=== PATIENT | male | born 1990 | race Caucasian/White ===

== ENCOUNTER 2020-04-06 10:54 | Emergency (ER) | payer MEDICAID, SELFPAY ==
[2020-04-06 10:57] VITALS: BP 151/87; PULSE 112; RESP 16; TEMP 37.4; O2SAT 98
--- NOTE | 2020-04-06 12:07 | ED.GENADULT ---
HPI - General Adult General Chief complaint: Skin/Abscess/Foreign Body Stated complaint: fb throat Time Seen by Provider: 04/06/20 11:42 Source: patient Mode of arrival: ambulatory Limitations: no limitations History of Present Illness HPI narrative: Patient is a 29-year-old male who presents with throat irritation notes that he swallowed a candy bar 2 days ago and has since had discomfort in the throat notes that he smoked marijuana today and was able to cough up what he thought might be some phlegm patient notes mild irritation denies other complaints PMFSH Social History Social History (Updated 04/06/20 @ 12:36 by Brian Monroy PA-C) Smoking status: Current every day smoker Substance use type: marijuana Exam Narrative: Exam Narrative: GENERAL: Well-appearing, well-nourished, and in no acute distress. HEAD: Normocephalic, atraumatic. EYES: PERRLA and EOMI. ENT: Nares clear, no rhinorrhea or epistaxis. Mucous membranes moist. CHEST: Clear to auscultation. No respiratory distress. No wheezes rales or rhonchi HEART: Regular rate and rhythm. No murmur heard. SKIN: Warm, dry, no rash. NEURO: No focal deficits. Alert and oriented x3. PSYCH: Normal mood and affect. Course Course Emergency Course: Patient refused any imaging wanted to leave it is felt that this is safe patient is swallowing liquids without difficulty his discomfort is in the upper throat he has no difficulty speaking will be discharged home Vital Signs Vital signs: Vital Signs Temperature 99.3 F 04/06/20 10:57 Pulse Rate 112 H 04/06/20 10:57 Respiratory Rate 16 04/06/20 10:57 Blood Pressure 151/87 H 04/06/20 10:57 Pulse Oximetry 98 04/06/20 10:57 Temperature 99.3 F 04/06/20 10:57 Pulse Rate 112 H 04/06/20 10:57 Respiratory Rate 16 04/06/20 10:57 Blood Pressure 151/87 H 04/06/20 10:57 Pulse Oximetry 98 04/06/20 10:57 Medical Decision Making MDM Narrative Medical decision making narrative: Patient opted to leave with no imaging Vital Signs Vital Signs: Vital Signs Temperature 99.3 F 04/06/20 10:57 Pulse Rate 112 H 04/06/20 10:57 Respiratory Rate 16 04/06/20 10:57 Blood Pressure 151/87 H 04/06/20 10:57 Pulse Oximetry 98 04/06/20 10:57 Temperature 99.3 F 04/06/20 10:57 Pulse Rate 112 H 04/06/20 10:57 Respiratory Rate 16 04/06/20 10:57 Blood Pressure 151/87 H 04/06/20 10:57 Pulse Oximetry 98 04/06/20 10:57 Discharge Plan Discharge Clinical Impression: Pain in throat Patient Disposition: Home, Self-Care Condition: Stable Instructions: Antibiotic Form, Foreign Body in Pharynx (ED) Additional Instructions: Follow-up with gastroenterology in the next 5 days. Go to ER for shortness of breath, difficulty breathing, chest pain, fever/chills, weakness, nauseau/vomitting, etc. or any other concerns. Take any prescribed medications as directed. If you do not have a drug allergy to tylenol or motrin and can tolerate it then take tylenol or motrin as needed for discomfort/pain. Follow-up/Referrals: Bradley Carlson MD [Primary Care Provider] - Gary White MD [Physician] -
== END 2020-04-06 12:39 | disposition home or self-care (01) ==
PROVIDERS: Emergency Provider Emergency Medicine; PCP Internal Medicine
DX: R07.0 Pain in throat (principal); F17.200 Nicotine dependence, unspecified, uncomplicated
CPT/HCPCS: 99281

== ENCOUNTER 2021-11-16 19:54 | Emergency (ER) | payer OTHER, SELFPAY ==
[2021-11-16 20:44] VITALS: BP 127/72; PULSE 80; RESP 19; TEMP 36.7; O2SAT 97
--- NOTE | 2021-11-16 21:32 | ECG_ITS ---
Measurements Intervals [place] Rate: 77 P: 80 CT: 147 QRS: 89 QRSD: 105 T: 73 QT: 348 QTc: 396 Interpretive Statements SINUS RHYTHM WITH MARKED SINUS ARRHYTHMIA BASELINE ARTIFACT- I, II, III, AVR, AVL, AVF, V1 NORMAL ECG Electronically Signed On 11-17-2021 8:02:20 CDT by Efren Matthews D.O.
[2021-11-16 21:53] LABS: Basophils Absolute Auto 0.14 K/mm3 (0.00-0.10); Eosinophils Absolute Auto 0.11 K/mm3 (0.02-0.50); Eosinophils Percent Auto 0.8 % (1.0-6.0); Hemoglobin 15.6 g/dL (14.0-18.0); Immature Granulocyte Absolute 0.05 K/mm3 (0.00-0.00); Immature Granulocyte Percent A 0.4 % (0.0-0.0); Lymphocytes Absolute Auto 1.95 K/mm3 (1.10-4.50); Lymphocytes Percent Auto 13.8 % (18.0-42.0); Mean Corpuscular HGB Conc 34.7 g/dL (32.0-36.0); Mean Corpuscular Hemoglobin 32.3 pg (27.0-31.0); Mean Corpuscular Volume 93.2 fL (78.0-102.0); Mean Platelet Volume 11.1 fl (8.7-11.0); Monocytes Absolute Auto 0.74 K/mm3 (0.10-0.90); Monocytes Percent Auto 5.2 % (2.0-11.0); Neutrophils Absolute Auto 11.2 K/mm3 (1.7-7.2); Neutrophils Percent Auto 78.8 % (50.0-70.0); Platelet Count Result 200 K/mm3 (150-420); Red Blood Count 4.83 M/mm3 (4.70-6.10); Red Cell Distribution Width 12.1 % (11.6-14.4); White Blood Count 14.2 K/mm3 (4.8-10.8)
--- NOTE | 2021-11-16 22:04 | PC.NURSE ---
Bartolo from [facility] assessing pt at this time.
[2021-11-16 22:20] LABS: Add Urine Microscopic? NO; Appearance Urine Clear (Clear); Bilirubin Urine Negative (Negative); Blood Urine Negative (Negative); Color Urine Yellow (Yellow); Glucose Urine UA Negative (Negative); Ketones Urine Negative (Negative); Leukocyte Esterase Ur Negative LEU/UL (Negative); Nitrate Urine Negative (Negative); Protein Urine Negative (Negative); Specific Grav Ur 1.025 (1.010-1.020); Urobilinogen Urine 0.2 mg/dL (0.2-1.0)
[2021-11-16 22:26] LABS: Amphetamine Screen Urine Negative (Negative); Barbiturate Screen Urine Negative (Negative); Benzodiazepines Screen Urine Negative (Negative); Cannabinoid Screen Urine Negative (Negative); Cocaine Screen Urine Negative (Negative); Methadone Screen Urine Negative (Negative); Opiate Screen Urine Negative (Negative); Phencyclidine Screen Urine Negative (Negative)
[2021-11-16 22:28] LABS: Acetaminophen < 2 ug/mL (10-30); Alanine Aminotransferase 30 U/L (16-63); Albumin Level 4.2 g/dL (3.4-5.0); Alkaline Phosphatase 74 U/L (46-116); Anion Gap 7 mmol/L (8-16); Aspartate Amino Transferase 20 U/L (15-37); Bilirubin,Total 0.6 mg/dL (0.00-1.00); Blood Urea Nitrogen 12 mg/dL (7-18); Calcium 9.1 mg/dL (8.5-10.1); Carbon Dioxide 30 mmol/L (21-32); Chloride 105 mmol/L (98-108); Estimated CRCL calculation 83 ml/min; Estimated Glomerular Filt Rate > 60; Ethanol < 3 mg/dL (0-6); Glucose 96 mg/dL (70-99); Osmolality Calculated 293 mOsm/kg (285-295); Potassium 3.9 mmol/L (3.5-5.1); Salicylate 1.1 mg/dL (2.8-20.0); Sodium 142 mmol/L (136-145); Thyroid Stimulating Hormone 1.16 uIU/mL (0.36-3.74); Total Protein 7.3 g/dL (6.4-8.2)
--- NOTE | 2021-11-16 22:58 | ED.PSYCH ---
HPI - Psych General Chief Complaint: Psychiatric Symptoms Stated Complaint: psych eval Time Seen by Provider: 11/16/21 19:58 Source: patient, family and RN notes reviewed Mode of arrival: ambulatory Limitations: no limitations History of Present Illness complaint: suicidal ideation and feels depressed Onset (ago): day(s) (2) Duration: constant History of same: Yes Relieving factors: none Exacerbating factors: other (uncertain) Associated psychiatric symptoms: depression and suicidal ideation Associated symptoms: denies other symptoms Treatments prior to arrival: none If self harm: admits thoughts of self harm Related Data Home Medications Medication Instructions Recorded Confirmed No Home Medications 11/16/21 11/16/21 Allergies Allergy/AdvReac Type Severity Reaction Status Date / Time No Known Allergies Allergy Verified 11/18/21 14:36 Review of Systems Review of Systems: All systems reviewed & are unremarkable except as noted in HPI and below Constitutional: Constitutional: Reports no additional constitutional complaints Eyes: Eyes: Reports no additional eye complaints ENT: Reports system reviewed and no additional complaints, except as documented Cardiovascular: Cardiovascular: Reports no additional cardiovascular complaints Respiratory: Respiratory: Reports no additional respiratory complaints Gastrointestinal: Gastrointestinal: Reports no additional gastrointestinal complaints Musculoskeletal: Musculoskeletal: Reports no additional musculoskeletal complaints Integumentary/Breasts: Skin/Breast: Reports system reviewed and no additional complaints, except as docu Neurologic: Reports system reviewed and no additional complaints, except as documented Psychiatric: Psychiatric: Reports no additional psychiatric complaints, Reports depression and Reports suicidal ideation Endocrine: Endocrine: Reports no additional endocrine complaints Hematologic/Lymphatic: Hematologic/Lymphatic: Reports no additional hematologic/lymphatic complaints Allergic/Immunologic: Allergic/Immunologic: Reports no additional allergic/immunologic complaints PMFSH Past Medical History Medical History Psychiatric disorder Social History Social History Smoking status: Current every day smoker Substance use type: marijuana Exam Const: General: healthy appearing and no acute distress Nutritional Appearance: well nourished Orientation/consciousness: patient oriented x3 Limitations: no limitations HENMT: Head: normal to inspection Ears: external ears normal, TM's normal bilaterally and EAC's normal General nose exam: Normal external nose present and Normal nares present Face and sinus: normal facial exam and sinuses nontender Mouth: Yes Normal oral and palatal mucosa present and Yes moist mucous membranes Teeth and gingiva: dentition normal Throat: posterior oropharynx normal Eyes: Conjunctivae: conjunctivae normal Pupils: Equal, round and reactive pupils present EOM: EOMs intact bilaterally Neck: Neck: normal visual inspection, no lymphadenopathy and no meningeal signs Chest: Chest palpation & inspection: normal inspection of the chest Resp: Effort & Inspection: normal respiratory effort Auscultation: clear to auscultation bilaterally Cardio: Rate: regular rate Rhythm: regular rhythm GI: GI Palp: Yes Soft to palpation and No Tenderness to palpation present (GI) Auscultation: normal bowel sounds : General: Yes bladder normal to palpation and Yes no CVA tenderness Back/Spine/Pelvis: Back: no CVA tenderness Skin: General skin exam: normal color Rashes: no rashes Wounds: no wounds Neuro: General: patient oriented x3, moves all extremities, no meningeal signs, no focal motor deficits and CN's II-XI intact bilaterally Cranial nerves: Yes Equal, round and reactive pupils present and Yes Nysta
--- NOTE | 2021-11-16 23:12 | PC.NURSE ---
[facility] report placed in pt chart, pt be deflected home.
[2021-11-16 23:27] VITALS: BP 124/88; PULSE 66; RESP 16; TEMP 36.6; O2SAT 66
== END 2021-11-16 23:28 | disposition home or self-care (01) ==
PROVIDERS: Emergency Provider Emergency Medicine; PCP Internal Medicine
DX: F32.A Depression, unspecified (principal); R45.851 Suicidal ideations
CPT/HCPCS: 36415; 80053; 80307; 81003; 84443; 85025; 93005; 99285

== ENCOUNTER 2023-06-09 07:14 | Emergency (ER) | payer BC, OTHER, SELFPAY ==
[2023-06-09] VITALS (7 sets, daily range): BP systolic 118–154; BP diastolic 81–86; PULSE 60–75; RESP 12–19; TEMP 36.1–36.2; O2SAT 97–100
--- NOTE | ~2023-06-09 | XR_ITS ---
Portable chest x-ray Comparison: 10/21/2006 Clinical History: Chest pain, cough Findings: Lungs are clear, without focal consolidation or pleural effusion. Cardiomediastinal silho uette is stable. Bones and soft tissues are unremarkable. Impression: Normal chest. Reviewed, dictated and finalized at location . WRAPPER Impression: Normal chest.
--- NOTE | 2023-06-09 07:16 | ECG_ITS ---
Measurements Intervals [place] Rate: 65 P: 80 NH: 118 QRS: 89 QRSD: 112 T: 86 QT: 358 QTc: 374 Interpretive Statements SINUS RHYTHM WITH SINUS ARRHYTHMIA WITH SHORT NH INTERVAL COMPARED TO ECG 11/16/2021 21:45:17 NO SIGNIFICANT CHANGES Electronically Signed On 06-09-2023 11:07:35 [employer] by Jeff Thrasher M.D.
[2023-06-09 07:32] LABS: Basophils Absolute Auto 0.12 K/mm3 (0.00-0.10); Basophils Percent Auto 1.3 % (0.0-1.0); Eosinophils Absolute Auto 0.21 K/mm3 (0.02-0.50); Eosinophils Percent Auto 2.3 % (1.0-6.0); Hematocrit 48.8 % (40.0-54.0); Hemoglobin 16.3 g/dL (14.0-18.0); Immature Granulocyte Absolute 0.04 K/mm3 (0.00-0.00); Immature Granulocyte Percent A 0.4 % (0.0-0.0); Lymphocytes Absolute Auto 1.82 K/mm3 (1.10-4.50); Mean Corpuscular HGB Conc 33.4 g/dL (32.0-36.0); Mean Corpuscular Hemoglobin 29.9 pg (27.0-31.0); Mean Corpuscular Volume 89.4 fL (78.0-102.0); Mean Platelet Volume 10.6 fl (8.7-11.0); Monocytes Absolute Auto 0.64 K/mm3 (0.10-0.90); Neutrophils Absolute Auto 6.3 K/mm3 (1.7-7.2); Platelet Count Result 199 K/mm3 (150-420); Red Blood Count 5.46 M/mm3 (4.70-6.10); Red Cell Distribution Width 11.9 % (11.6-14.4); White Blood Count 9.1 K/mm3 (4.8-10.8)
[2023-06-09] MEDS: ONDANSETRON HCL ODT 4 MG TABLET PO (07:32)
[2023-06-09] MEDS: ALPRAZolam (*CRX) 0.5 MG TABLET PO (07:32)
--- NOTE | 2023-06-09 07:33 | PC.NURSE ---
Patient refuses Toradol shot at this time. States last time he passed out from fear of needles. will hold medication at this time. ERP aware.
[2023-06-09 07:46] LABS: D Dimer 0.19 mg/L (0.19-0.50); Partial Thromboplastin Time 25.9 SEC (23.90-30.70); Prothrombin Time 11.1 Seconds (9.50-12.10)
[2023-06-09 07:52] LABS: Alanine Aminotransferase 23 U/L (16-63); Albumin Level 4.1 g/dL (3.4-5.0); Alkaline Phosphatase 76 U/L (46-116); Anion Gap 10 mmol/L (8-16); Aspartate Amino Transferase 23 U/L (15-37); Bilirubin,Total 0.9 mg/dL (0.00-1.00); Blood Urea Nitrogen 15 mg/dL (7-18); Calcium 8.7 mg/dL (8.5-10.1); Carbon Dioxide 29 mmol/L (21-32); Chloride 101 mmol/L (98-108); Estimated Glomerular Filt Rate > 60; Glucose 122 mg/dL (70-99); Lipase 22 U/L (16-77); NT Pro B Type Natriuretic Pept 22 pg/mL (0-125); Osmolality Calculated 291 mOsm/kg (285-295); Potassium 3.9 mmol/L (3.5-5.1); Sodium 140 mmol/L (136-145); Total Protein 7.5 g/dL (6.4-8.2)
[2023-06-09 07:53] LABS: Troponin I < 4.0 ng/L (0.00-60.4)
--- NOTE | 2023-06-09 08:17 | ED.CHESTPAIN ---
HPI - Chest Pain General Chief Complaint: Chest Pain Stated Complaint: chest pain Time Seen by Provider: 06/09/23 07:15 Source: patient Mode of arrival: ambulatory Limitations: no limitations History of Present Illness HPI narrative: this is 32-year-old male history of anxiety and depression presents with chest discomfort substernal left-sided with radiation into his neck has a smoking history with no family history of heart disease no prior history of heart disease smokes marijuana but denies any other illicit drugs no cocaine. The patient has been having off and on chest discomfort that is reproducible with palpation and movement of his left shoulder with no known injuries. There is some pain with deep inspiration and movement otherwise no diaphoresis no pain no flank pain no fever chills. complaint: chest discomfort Onset (ago): week(s) Pain location: subxiphoid Pain radiation: left arm and neck Severity: moderate Quality: aching Exacerbating factors: inspiration, palpation, movement and stress Related Data Home Medications Medication Instructions Recorded Confirmed No Home Medications 11/16/21 06/09/23 Allergies Allergy/AdvReac Type Severity Reaction Status Date / Time No Known Allergies Allergy Verified 06/09/23 07:16 Review of Systems Review of Systems: All systems reviewed & are unremarkable except as noted in HPI and below PMFSH Past Medical History Medical History Psychiatric disorder Social History Social History Smoking status: Current every day smoker Substance use type: marijuana Exam Const: General: healthy appearing and no acute distress Nutritional Appearance: well nourished Orientation/consciousness: patient oriented x3 Limitations: no limitations Neck: Neck: normal visual inspection, no lymphadenopathy and no meningeal signs Chest: Chest palpation & inspection: normal inspection of the chest Resp: Effort & Inspection: normal respiratory effort Auscultation: clear to auscultation bilaterally Cardio: Rate: regular rate Rhythm: regular rhythm GI: Auscultation: normal bowel sounds : General: Yes bladder normal to palpation Skin: General skin exam: normal color Rashes: no rashes Neuro: General: patient oriented x3, moves all extremities and no meningeal signs Extrem: Other: Chest pain with some palpation Psych: Affect: Anxious affect present Course Course Emergency Course: EKG reviewed and with normal sinus rhythm patient had blood work which was unremarkable troponins were negative no abnormalities in the rest of his blood work. The patient did receive Zofran and on Xanax which helped his anxiety and has improved his pain level. Vital Signs Vital signs: Vital Signs Temperature 36.1 C L 06/09/23 07:16 Pulse Rate 74 06/09/23 07:16 Respiratory Rate 16 06/09/23 07:16 Blood Pressure 154/84 H 06/09/23 07:16 Pulse Oximetry 100 06/09/23 07:16 Oxygen Delivery Room Air 06/09/23 07:16 Temperature 36.1 C L 06/09/23 07:16 Pulse Rate 74 06/09/23 07:16 Respiratory Rate 16 06/09/23 07:16 Blood Pressure 154/84 H 06/09/23 07:16 Pulse Oximetry 100 06/09/23 07:16 Oxygen Delivery Room Air 06/09/23 07:16 MDM - Chest Pain Lab Data 06/09/23 07:28 06/09/23 07:28 Labs: Lab Results 06/09/23 Range/Units 07:28 WBC 9.1 (4.8-10.8) K/mm3 RBC 5.46 (4.70-6.10) M/mm3 Hgb 16.3 (14.0-18.0) g/dL Hct 48.8 (40.0-54.0) % MCV 89.4 (78.0-102.0) fL MCH 29.9 (27.0-31.0) pg MCHC 33.4 (32.0-36.0) g/dL RDW 11.9 (11.6-14.4) % Plt Count 199 (150-420) K/mm3 MPV 10.6 (8.7-11.0) fl Immature Gran % (Auto) 0.4 H (0.0-0.0) % Neut % (Auto) 69.0 (50.0-70.0) % Lymph % (Auto) 20.0 (18.0-42.0) % Wilkinson % (Auto) 7.0 (2.0-11.0) % Eos % (Auto) 2.3 (1.0-6.0) %
--- NOTE | 2023-06-09 08:20 | PC.NURSE ---
On 06/09/23, the student, Tatum Jose, provided care and completed [facility] documentation on this patient. I have reviewed the student's documentation and agree with the findings.
== END 2023-06-09 08:28 | disposition home or self-care (01) ==
PROVIDERS: Emergency Provider Emergency Medicine; PCP Family Medicine
DX: M94.0 Chondrocostal junction syndrome [Tietze] (principal); F41.9 Anxiety disorder, unspecified; F12.90 Cannabis use, unspecified, uncomplicated
CPT/HCPCS: 36415; 71045; 80053; 83690; 83880; 84484; 85025; 85380; 85610; 85730; 93005; 99284; A9270

== ENCOUNTER 2023-06-10 15:45 | Outpatient (CLI) | payer BC, OTHER, SELFPAY ==
--- NOTE | ~2023-06-10 | XR_ITS ---
EXAMINATION: XR shoulder LT min 2V DATE: 06/10/2023 16:05 INDICATION: Left shoulder pain. TECHNIQUE: 4 views of left shoulder were obtained. COMPARISON: None. FINDINGS: Bone alignment is normal. No fracture. Joint spaces are normal. IMPRESSION: 1. Normal left shoulder. Reviewed, dictated and finalized at location E. GER DEMAND IMPRESSION: 1. Normal left shoulder.
== END 2023-06-10 15:46 | disposition home or self-care (01) ==
LOC: CHSIMG 15:47
PROVIDERS: PCP Family Medicine; Visit Provider Family Medicine
DX: M25.512 Pain in left shoulder (principal)
CPT/HCPCS: 73030